=== PATIENT | female | born 1980 | race African-American/Black ===

== ENCOUNTER 2024-05-26 11:41 | Emergency (ER) | payer MEDICAID ==
[~2024-05-26] VITALS: Ht 165.1 cm; Wt 99.5 kg
[2024-05-26 11:54] VITALS: BP 126/70; RESP 16; TEMP 98; O2SAT 99
[2024-05-26 11:55] VITALS: PULSE 99; O2SAT 100
[2024-05-26 12:52] LABS: CLARITY URINE CLOUDY (CLEAR); COLOR URINE YELLOW (YELLOW); GLUCOSE URINE 3+ (NEGATIVE); KETONES URINE NEGATIVE (NEGATIVE); LEUKOCYTE ESTERASE URINE 2+ (NEGATIVE); NITRITE URINE POSITIVE (NEGATIVE); OCCULT BLOOD URINE NEGATIVE (NEGATIVE); PH URINE 5.5 (4.5-8.0); PROTEIN URINE NEGATIVE (NEGATIVE); SPECIFIC GRAVITY URINE 1.023 (1.005-1.030); UROBILINOGEN URINE 0.2 E.U./dL (0.2-1.0)
[2024-05-26] MEDS ORDERED: PYR200 MT (13:06)
[2024-05-26] MEDS ORDERED: CEPH500T MT (13:06)
[2024-05-26] MEDS ORDERED: CEPHALEXIN 250MG CAPSULE PO ONE (13:15)
[2024-05-26 13:37] LABS: SQUAMOUS EPITHELIAL CELL URINE FEW /lpf (RARE/1+)
[2024-05-26 13:38] LABS: BACTERIA URINE 3+; TRICHOMONAS URINE 2+
[2024-05-26 13:39] LABS: WBC URINE 50-100 /hpf (0-2)
[2024-05-26 13:40] LABS: RBC URINE NONE SEEN /hpf (0-2)
[2024-05-26] MEDS ORDERED: CEPHALEXIN 250MG CAPSULE PO SCH (16:00)
== END 2024-05-26 16:09 | disposition home or self-care (01) ==
LOC: ER 11:41
DX: N39.0 Urinary tract infection, site not specified (principal); E11.9 Type 2 diabetes mellitus without complications; Z90.49 Acquired absence of other specified parts of digestive tract
CPT/HCPCS: 81003; 87077; 87186; 99283

== ENCOUNTER 2024-07-05 07:44 | Emergency (ER) | payer MEDICAID ==
[~2024-07-05] VITALS: Ht 165.1 cm; Wt 99.7 kg
[~2024-07-05 07:44] MED LIST: CEPH500T MT; PYR200 MT
[2024-07-05 07:53] VITALS: TEMP 98.2; O2SAT 99
[2024-07-05] MEDS ORDERED: ALBU90AE INH (08:29)
[2024-07-05] MEDS ORDERED: PRED10TA23 MT (08:29)
[2024-07-05 08:36] VITALS: BP 124/76; PULSE 74; RESP 16; O2SAT 99
== END 2024-07-05 08:38 | disposition home or self-care (01) ==
LOC: ER 07:44
DX: J40 Bronchitis, not specified as acute or chronic (principal)
CPT/HCPCS: 71046; 99283

== ENCOUNTER 2024-08-19 12:43 | Emergency (ER) | payer MEDICAID ==
[~2024-08-19] VITALS: Ht 165.1 cm; Wt 98.0 kg
[~2024-08-19 12:43] MED LIST changes: +ALBU90AE INH; +PRED10TA23 MT
[2024-08-19 12:50] VITALS: BP 145/85; PULSE 96; RESP 16; TEMP 98.6; O2SAT 99
[2024-08-19 13:14] LABS: CLARITY URINE CLEAR (CLEAR); COLOR URINE YELLOW (YELLOW); GLUCOSE URINE 3+ (NEGATIVE); KETONES URINE NEGATIVE (NEGATIVE); LEUKOCYTE ESTERASE URINE 2+ (NEGATIVE); NITRITE URINE POSITIVE (NEGATIVE); OCCULT BLOOD URINE 3+ (NEGATIVE); PH URINE 6.5 (4.5-8.0); PROTEIN URINE TRACE (NEGATIVE); SPECIFIC GRAVITY URINE 1.021 (1.005-1.030)
[2024-08-19 13:24] LABS: BACTERIA URINE 4+; RBC URINE 25-50 /hpf (0-2); SQUAMOUS EPITHELIAL CELL URINE 1+ /lpf (RARE/1+); WBC URINE TNTC /hpf (0-2); YEAST URINE NONE SEEN
[2024-08-19] MEDS ORDERED: CEFP100S5 MT (16:32)
[2024-08-19 17:04] LABS: UCG SCREEN NEGATIVE
[2024-08-19 17:05] LABS: UCG KIT LOT# 873622
== END 2024-08-19 18:51 | disposition home or self-care (01) ==
LOC: ER 12:49
DX: N39.0 Urinary tract infection, site not specified (principal); E11.9 Type 2 diabetes mellitus without complications
CPT/HCPCS: 81003; 81025; 87077; 87186; 99283; A4565

== ENCOUNTER 2024-11-27 23:37 | Inpatient (IN) | payer BC, OTHER ==
[~2024-11-27] VITALS: Ht 165.1 cm; Wt 98.5 kg
[~2024-11-27 23:37] MED LIST changes: +CEFP100S5 MT
[2024-11-28] VITALS (7 sets, daily range): BP systolic 95–127; BP diastolic 55–63; PULSE 69–117; RESP 18–22; TEMP 36.3–37.9; O2SAT 95–100
[2024-11-28 00:45] LABS: CLARITY URINE CLOUDY (CLEAR); COLOR URINE YELLOW (YELLOW); GLUCOSE URINE 3+ (NEGATIVE); KETONES URINE 3+ (NEGATIVE); LEUKOCYTE ESTERASE URINE TRACE (NEGATIVE); NITRITE URINE NEGATIVE (NEGATIVE); OCCULT BLOOD URINE NEGATIVE (NEGATIVE); PROTEIN URINE 1+ (NEGATIVE); SPECIFIC GRAVITY URINE 1.023 (1.005-1.030); UROBILINOGEN URINE 0.2 E.U./dL (0.2-1.0)
[2024-11-28] MEDS ORDERED: AZITHROMYCIN 500MG/250ML 250 ML IV ONE (01:00)
[2024-11-28 01:02] LABS: RBC URINE 0-2 /hpf (0-2); SQUAMOUS EPITHELIAL CELL URINE FEW /lpf (RARE/1+)
[2024-11-28 01:03] LABS: BACTERIA URINE TRACE
[2024-11-28] MEDS: LACTATED RINGERS 1,000 ML IV ONE (01:13)
[2024-11-28] MEDS: CEFTRIAXONE 1GM/50ML 50 ML IV ONE (01:20)
[2024-11-28] MEDS: KETOROLAC 15MG/ML VIAL IV ONE (01:20)
[2024-11-28 01:38] LABS: HEMOGLOBIN. 9.5 g/dL (12.0-16.0); MEAN CORPUSCULAR HEMOGLOBIN 25.3 pg (28.0-32.0); MEAN CORPUSCULAR HGB CONC 32.8 g/dL (31.0-37.0); MEAN CORPUSCULAR VOLUME 77.2 fL (81.0-99.0); MEAN PLATELET VOLUME 8.9 fl (7.4-10.4); PLATELET 348 x1000/uL (130-400); RED BLOOD CELL COUNT 3.76 mill/uL (4.2-5.4); RED CELL DISTRIBUTION WIDTH 18.4 % (11.6-14.6); WHITE BLOOD COUNT 31.2 x1000/uL (4.5-11.0)
[2024-11-28 01:45] LABS: CHLORIDE 95 mEq/L (98-107); POTASSIUM 3.9 mEq/L (3.5-5.1); SODIUM 133 mEq/L (136-145)
[2024-11-28 01:46] LABS: CALCIUM 9.2 mg/dL (8.7-10.4); CARBON DIOXIDE 21 mEq/L (21-32)
[2024-11-28 01:50] LABS: DIFFERENTIAL COMMENT 1
[2024-11-28 01:51] LABS: CREATININE 1.3 mg/dL (0.6-1.0); UREA NITROGEN BLOOD 10 mg/dL (9-23)
[2024-11-28 01:53] LABS: ALANINE AMINOTRANSFERASE 10 IU/L (10-49); ASPARTATE AMINOTRANSFERASE 13 IU/L (<34); BILIRUBIN DIRECT 0.2 mg/dL (<=3.0); PROTEIN TOTAL 8.2 g/dL (6.0-8.3)
[2024-11-28] MEDS: AZITHROMYCIN 500MG/250ML 250 ML IV NR (01:56)
[2024-11-28 02:02] LABS: HCG SCREEN NEGATIVE
[2024-11-28 02:07] LABS: TROPONIN I HIGH SENSITIVITY < 4 ng/L (3.0-34)
[2024-11-28 02:08] LABS: INR 1.2; PROTHROMBIN TIME 12.4 sec (9.6-11.0)
[2024-11-28 02:10] LABS: GLUCOSE 410 mg/dL (70-105)
[2024-11-28] MEDS: INSULIN LISPRO 100 UNITS/ML SUBCUT ONE (02:11)
[2024-11-28 02:18] LABS: BILIRUBIN TOTAL 0.6 mg/dL (0.1-1.0)
[2024-11-28 02:21] LABS: ANISOCYTOSIS 1+; MICROCYTOSIS 1+; PLATELET ESTIMATE NORMAL
[2024-11-28] MEDS: IPRATROPIUM/ALBUTEROL 0.5-3(2.5)MG/3ML NEB HHN SCH (03:05)
[2024-11-28] MEDS ORDERED: CLONIDINE 0.1MG TABLET PO PRN (04:30)
[2024-11-28] MEDS ORDERED: POTASSIUM CHLORIDE 20MEQ TABLET SR PO PRN (04:30)
[2024-11-28] MEDS ORDERED: HYDROCODONE/ACETAMINOPHEN 5/325MG TABLET PO PRN (04:30)
[2024-11-28] MEDS ORDERED: IPRATROPIUM/ALBUTEROL 0.5-3(2.5)MG/3ML NEB HHN PRN ×2 (04:30)
[2024-11-28] MEDS ORDERED: DOCUSATE SODIUM 100MG CAPSULE PO PRN (04:30)
[2024-11-28] MEDS ORDERED: MAGNESIUM/ALUMINUM HYDROXIDE/SIMETHICONE 30ML UDC PO PRN (04:30)
[2024-11-28] MEDS ORDERED: DEXTROSE 50% WATER 50ML SYRINGE IV PRN ×2 (04:30)
[2024-11-28] MEDS ORDERED: ONDANSETRON HCL 4MG/2ML INJ IV PRN (04:30)
[2024-11-28] MEDS: VANCOMYCIN 1.5GM/250ML 250 ML IV NR (05:29)
[2024-11-28] MEDS ORDERED: BLOOD SUGAR DIAGNOSTIC STRIP TEST SCH (07:20)
[2024-11-28] MEDS: BLOOD SUGAR DIAGNOSTIC STRIP TEST SCH (07:44)
[2024-11-28] MEDS: PIPERACILLIN/TAZO 3.375G/50ML 100 ML IV SCH (07:46)
[2024-11-28] MEDS ORDERED: INSULIN LISPRO 100 UNITS/ML SUBCUT SCH ×2 (07:50)
[2024-11-28] MEDS: ENOXAPARIN 40MG/0.4ML SYR SUBCUT SCH (09:34)
[2024-11-28] MEDS: INSULIN LISPRO 100 UNITS/ML SUBCUT SCH (09:37)
[2024-11-28] MEDS ORDERED: NALOXONE HCL 0.4MG/ML VIAL IV PRN (12:45)
[2024-11-28] MEDS: PIPERACILLIN/TAZO 3.375G/50ML 50 ML IV SCH (14:28)
[2024-11-28] MEDS: SODIUM CHLORIDE 0.9% 1,000 ML IV SCH (14:34)
[2024-11-28 18:03] LABS: T4 FREE 1.01 ng/dL (0.89-1.76)
[2024-11-28 18:04] LABS: THYROID STIMULATING HORMONE 0.74 uIU/mL (0.55-4.78)
[2024-11-28] MEDS: ACETAMINOPHEN 325MG TABLET PO PRN (18:13)
[2024-11-28] MEDS ORDERED: IOHEXOL-300 100 ML BOTTLE ONE (22:23)
[2024-11-29] VITALS (9 sets, daily range): BP systolic 104–123; BP diastolic 63–81; PULSE 97–113; RESP 16–20; TEMP 36.2–36.7; O2SAT 95–99
[2024-11-29] MEDS: VANCOMYCIN 1.25GM/250ML IV SCH (03:10)
[2024-11-29 08:18] LABS: CHLORIDE 99 mEq/L (98-107); POTASSIUM 3.8 mEq/L (3.5-5.1); SODIUM 132 mEq/L (136-145)
[2024-11-29 08:19] LABS: CALCIUM 8.7 mg/dL (8.7-10.4); CARBON DIOXIDE 24 mEq/L (21-32)
[2024-11-29 08:22] LABS: UREA NITROGEN BLOOD 13 mg/dL (9-23)
[2024-11-29 08:24] LABS: CREATININE 0.8 mg/dL (0.6-1.0); GLUCOSE 392 mg/dL (70-105)
[2024-11-29 08:25] LABS: ALBUMIN 3.3 g/dL (3.2-4.8)
[2024-11-29 08:26] LABS: ALANINE AMINOTRANSFERASE 7 IU/L (10-49); ASPARTATE AMINOTRANSFERASE 12 IU/L (<34); BILIRUBIN DIRECT < 0.1 mg/dL (<=3.0); BILIRUBIN TOTAL 0.3 mg/dL (0.1-1.0); PROTEIN TOTAL 6.7 g/dL (6.0-8.3)
[2024-11-29 08:43] LABS: HEMOGLOBIN. 8.7 g/dL (12.0-16.0); MEAN CORPUSCULAR HEMOGLOBIN 24.7 pg (28.0-32.0); MEAN CORPUSCULAR HGB CONC 32.3 g/dL (31.0-37.0); MEAN CORPUSCULAR VOLUME 76.4 fL (81.0-99.0); PLATELET 283 x1000/uL (130-400); RED BLOOD CELL COUNT 3.54 mill/uL (4.2-5.4); RED CELL DISTRIBUTION WIDTH 18.9 % (11.6-14.6); WHITE BLOOD COUNT 19.5 x1000/uL (4.5-11.0)
[2024-11-29 09:04] LABS: DIFFERENTIAL COMMENT 1
[2024-11-29] MEDS: AZITHROMYCIN 500 MG TABLET PO SCH (09:09)
[2024-11-29 09:44] LABS: *AMPHETAMINES SCREEN URINE NEGATIVE (NEGATIVE); *BARBITURATES SCREEN URINE NEGATIVE (NEGATIVE); *BENZODIAZEPINES SCREEN URINE NEGATIVE (NEGATIVE); *COCAINE SCREEN URINE NEGATIVE (NEGATIVE); CANNABINOID URINE SCREEN NEGATIVE (NEGATIVE); ECSTASY MDMA SCREEN URINE NEGATIVE (NEGATIVE); METHADONE URINE SCREEN NEGATIVE (NEGATIVE); OPIATES URINE SCREEN NEGATIVE (NEGATIVE); PHENCYCLIDINE URINE SCREEN NEGATIVE (NEGATIVE)
[2024-11-29 09:50] LABS: TROPONIN I HIGH SENSITIVITY < 4 ng/L (3.0-34)
[2024-11-29 12:26] LABS: ANISOCYTOSIS 2+; MICROCYTOSIS 1+; PLATELET ESTIMATE NORMAL
[2024-11-29 17:32] LABS: INFLUENZA TYPE A Presumptive Negative (Pres. Neg.)
[2024-11-29 17:33] LABS: INFLUENZA TYPE B Presumptive Negative (Pres. Neg.)
[2024-11-29 17:34] LABS: RESPIRATORY SYNCYTIAL VIRUS Not Detected (Not Detectd)
[2024-11-29] MEDS: POTASSIUM-SODIUM PHOSPHATE POWDER PACKET PO NR (18:45)
[2024-11-29] MEDS: INSULIN LISPRO 100 UNITS/ML SUBCUT SCH (18:45)
[2024-11-29] MEDS: INSULIN GLARGINE 100 UNITS/ML SUBCUT SCH (22:53)
[2024-11-30] VITALS (9 sets, daily range): BP systolic 93–117; BP diastolic 66–78; PULSE 76–108; RESP 16–19; TEMP 36.3–36.7; O2SAT 96–100
[2024-11-30 08:41] LABS: BASOPHILS % 0.4 % (0.0-2.0); DIFFERENTIAL COMMENT 0; EOSINOPHILS % 0.6 % (0.0-5.0); HEMATOCRIT. 25.6 % (36.0-48.0); HEMOGLOBIN. 8.3 g/dL (12.0-16.0); LYMPHOCYTES % 8.2 % (20.0-50.0); MEAN CORPUSCULAR HEMOGLOBIN 24.4 pg (28.0-32.0); MEAN CORPUSCULAR HGB CONC 32.3 g/dL (31.0-37.0); MEAN CORPUSCULAR VOLUME 75.5 fL (81.0-99.0); MEAN PLATELET VOLUME 8.9 fl (7.4-10.4); MONOCYTES % 6.3 % (2.0-8.0); NEUTROPHILS % 84.5 % (40.0-76.0); PLATELET 294 x1000/uL (130-400); RED BLOOD CELL COUNT 3.39 mill/uL (4.2-5.4); RED CELL DISTRIBUTION WIDTH 18.4 % (11.6-14.6); WHITE BLOOD COUNT 14.9 x1000/uL (4.5-11.0)
[2024-11-30 08:47] LABS: CHLORIDE 100 mEq/L (98-107); POTASSIUM 3.6 mEq/L (3.5-5.1); SODIUM 136 mEq/L (136-145)
[2024-11-30 08:51] LABS: CALCIUM 8.8 mg/dL (8.7-10.4); CARBON DIOXIDE 27 mEq/L (21-32)
[2024-11-30 08:52] LABS: UREA NITROGEN BLOOD 9 mg/dL (9-23)
[2024-11-30 08:56] LABS: CREATININE 0.7 mg/dL (0.6-1.0); GLUCOSE 357 mg/dL (70-105)
[2024-11-30 08:58] LABS: ALANINE AMINOTRANSFERASE 11 IU/L (10-49); ALBUMIN 3.2 g/dL (3.2-4.8); ASPARTATE AMINOTRANSFERASE 14 IU/L (<34); BILIRUBIN DIRECT < 0.1 mg/dL (<=3.0)
[2024-11-30 08:59] LABS: BILIRUBIN TOTAL 0.2 mg/dL (0.1-1.0); PHOSPHORUS 2.8 mg/dL (2.5-4.9); PROTEIN TOTAL 6.3 g/dL (6.0-8.3)
[2024-11-30] MEDS: INSULIN GLARGINE 100 UNITS/ML SUBCUT SCH ×2 (10:52→21:43)
[2024-11-30] MEDS: INSULIN LISPRO 100 UNITS/ML SUBCUT SCH ×2 (13:43→18:11)
[2024-11-30] MEDS: VANCOMYCIN 1GM/200ML PMX (BAXTER) IV SCH (14:34)
[2024-12-01] VITALS (8 sets, daily range): BP systolic 105–132; BP diastolic 62–84; PULSE 75–106; RESP 15–18; TEMP 36.2–36.5; O2SAT 93–98
[2024-12-01 08:22] LABS: CARBON DIOXIDE 27 mEq/L (21-32); CHLORIDE 98 mEq/L (98-107); POTASSIUM 3.7 mEq/L (3.5-5.1); SODIUM 136 mEq/L (136-145)
[2024-12-01 08:23] LABS: CALCIUM 9.1 mg/dL (8.7-10.4)
[2024-12-01 08:28] LABS: GLUCOSE 263 mg/dL (70-105); UREA NITROGEN BLOOD 8 mg/dL (9-23)
[2024-12-01 08:44] LABS: BASOPHILS % 0.6 % (0.0-2.0); DIFFERENTIAL COMMENT 0; EOSINOPHILS % 1.2 % (0.0-5.0); HEMATOCRIT. 28.1 % (36.0-48.0); HEMOGLOBIN. 8.9 g/dL (12.0-16.0); LYMPHOCYTES % 12.7 % (20.0-50.0); MEAN CORPUSCULAR HEMOGLOBIN 24.1 pg (28.0-32.0); MEAN CORPUSCULAR HGB CONC 31.8 g/dL (31.0-37.0); MEAN CORPUSCULAR VOLUME 75.8 fL (81.0-99.0); MEAN PLATELET VOLUME 8.6 fl (7.4-10.4); MONOCYTES % 10.6 % (2.0-8.0); NEUTROPHILS % 74.9 % (40.0-76.0); PLATELET 339 x1000/uL (130-400); RED CELL DISTRIBUTION WIDTH 18.5 % (11.6-14.6)
[2024-12-01] MEDS: INSULIN GLARGINE 100 UNITS/ML SUBCUT SCH (12:13)
[2024-12-01] MEDS: INSULIN LISPRO (LOW DOSE) 100 UNITS/ML SUBCUT SCH (12:20)
[2024-12-01] MEDS ORDERED: INSULIN LISPRO 100 UNITS/ML SUBCUT SCH (12:20)
[2024-12-01] MEDS ORDERED: BENZONATATE 100MG CAPSULE PO PRN (12:45)
[2024-12-01] MEDS ORDERED: GUAIFENESIN-DM 200MG-20MG/10ML UDC PO PRN (12:45)
[2024-12-01] MEDS ORDERED: LANTUSUD SUBCUT ×2 (12:51)
[2024-12-01] MEDS ORDERED: BENZ100C86 MT (12:51)
[2024-12-01] MEDS ORDERED: INSLIS SUBCUT (12:51)
[2024-12-01] MEDS ORDERED: LEVO750T68 MT (12:51)
[2024-12-01] MEDS ORDERED: GUAI-740 MT (12:51)
[2024-12-01] MEDS ORDERED: NEED-472 SQ (16:06)
[2024-12-01] MEDS ORDERED: INSULIN GLARGINE 100 UNITS/ML SUBCUT SCH (22:00)
== END 2024-12-01 16:15 | disposition home or self-care (01) | DRG 871 ==
LOC: ER 23:37 → 6WST 11-28 02:27 → EDBEDREQTM 11-28 02:35 → EDBEDREQ 11-28 02:35 → EDBEDREQSVC 11-28 02:35
PROVIDERS: ADMIT Specialist; ATTEND Specialist
DX: A41.9 Sepsis, unspecified organism (principal); J18.9 Pneumonia, unspecified organism; N17.9 Acute kidney failure, unspecified; N39.0 Urinary tract infection, site not specified; E11.40 Type 2 diabetes mellitus with diabetic neuropathy, unspecified; D57.3 Sickle-cell trait; E11.649 Type 2 diabetes mellitus with hypoglycemia without coma; Z20.822 Contact with and (suspected) exposure to COVID-19; R16.0 Hepatomegaly, not elsewhere classified; D50.9 Iron deficiency anemia, unspecified; E66.01 Morbid (severe) obesity due to excess calories; Z79.4 Long term (current) use of insulin; Z80.3 Family history of malignant neoplasm of breast; Z83.3 Family history of diabetes mellitus; Z90.49 Acquired absence of other specified parts of digestive tract; Z68.35 Body mass index [BMI] 35.0-35.9, adult
CPT/HCPCS: 36415; 71045; 73502; 74177; 80048; 80061; 80076; 80202; 80305; 81003; 82533; 82962; 83036; 83519; 83605; 83735; 84100; 84145; 84439; 84443; 84484; 84681; 84703; 85025; 85044; 86850; 86900; 87420; 87426; 87804; 93005; 93970; 94070; 94640; 99291; A4606; C1893; J0456; J0696; J1650; J1815; J1885; J2405; J2543; J3370; J7030; J7120; Q9967

== ENCOUNTER 2025-05-28 16:57 | Emergency (ER) | payer BC ==
[~2025-05-28] VITALS: Ht 167.6 cm; Wt 82.0 kg
[~2025-05-28 16:57] MED LIST changes: -ALBU90AE INH; +BENZ100C86 MT; -CEFP100S5 MT; -CEPH500T MT; +GUAI-740 MT; +INSLIS SUBCUT; +LANTUSUD SUBCUT; +LEVO750T68 MT; +NEED-472 SQ; -PRED10TA23 MT; -PYR200 MT
[2025-05-28 17:04] VITALS: TEMP 36.7; O2SAT 99
[2025-05-28 18:28] LABS: BASOPHILS % 0.6 % (0.0-2.0); EOSINOPHILS % 1.4 % (0.0-5.0); HEMATOCRIT. 25.3 % (36.0-48.0); HEMOGLOBIN. 8.2 g/dL (12.0-16.0); LYMPHOCYTES % 22.5 % (20.0-50.0); MEAN PLATELET VOLUME 8.4 fl (7.4-10.4); MONOCYTES % 9.8 % (2.0-8.0); NEUTROPHILS % 65.7 % (40.0-76.0); PLATELET 343 x1000/uL (130-400); RED BLOOD CELL COUNT 3.39 mill/uL (4.2-5.4); RED CELL DISTRIBUTION WIDTH 18.9 % (11.6-14.6)
[2025-05-28 18:44] LABS: CREATININE 0.8 mg/dL (0.6-1.0); UREA NITROGEN BLOOD 10 mg/dL (9-23)
[2025-05-28 18:58] LABS: BG DEOXYHEMOGLOBIN 34.0 % (0.0-5.0)
[2025-05-28 19:46] VITALS: BP 138/79; PULSE 88; RESP 16; O2SAT 98
== END 2025-05-28 19:50 | disposition home or self-care (01) ==
LOC: ER 16:57
DX: R25.2 Cramp and spasm (principal); R20.0 Anesthesia of skin; R20.2 Paresthesia of skin; E11.9 Type 2 diabetes mellitus without complications
CPT/HCPCS: 36415; 80048; 82010; 82375; 82803; 85025; 99283

== ENCOUNTER 2025-06-03 07:28 | Emergency (ER) | payer BC ==
[~2025-06-03] VITALS: Ht 166.4 cm; Wt 103.5 kg
[2025-06-03 07:33] VITALS: O2SAT 99
[2025-06-03] MEDS: ACETAMINOPHEN 500MG TABLET PO ONE (08:38)
[2025-06-03] MEDS ORDERED: ACET-2708 MT (08:50)
[2025-06-03 08:52] VITALS: BP 140/88; PULSE 92; RESP 16; TEMP 37.4; O2SAT 99
[2025-06-03 10:23] LABS: INFLUENZA TYPE A Presumptive Negative (Pres. Neg.); INFLUENZA TYPE B Presumptive Negative (Pres. Neg.)
== END 2025-06-03 08:53 | disposition home or self-care (01) ==
LOC: ER 07:28
DX: U07.1 COVID-19 (principal); R05.9 Cough, unspecified; R09.81 Nasal congestion; E11.9 Type 2 diabetes mellitus without complications; Z90.49 Acquired absence of other specified parts of digestive tract
CPT/HCPCS: 87426; 87804; 99283

== ENCOUNTER 2025-07-01 15:09 | Emergency (ER) | payer BC, MEDICAID ==
[~2025-07-01] VITALS: Ht 165.1 cm; Wt 104.5 kg
[~2025-07-01 15:09] MED LIST changes: +ACET-2708 MT
[2025-07-01 15:20] VITALS: BP 146/85; TEMP 36.9; O2SAT 100
[2025-07-01 15:22] VITALS: PULSE 88; RESP 16; O2SAT 99
[2025-07-01 15:58] LABS: CLARITY URINE CLOUDY (CLEAR); GLUCOSE URINE 3+ (NEGATIVE); KETONES URINE NEGATIVE (NEGATIVE); LEUKOCYTE ESTERASE URINE 2+ (NEGATIVE); NITRITE URINE NEGATIVE (NEGATIVE); OCCULT BLOOD URINE NEGATIVE (NEGATIVE); PH URINE 6.0 (4.5-8.0); PROTEIN URINE NEGATIVE (NEGATIVE); SPECIFIC GRAVITY URINE 1.022 (1.005-1.030); UROBILINOGEN URINE 0.2 E.U./dL (0.2-1.0)
[2025-07-01 16:12] LABS: COLOR URINE STRAW (YELLOW)
[2025-07-01 16:13] LABS: BACTERIA URINE 3+; RBC URINE NONE SEEN /hpf (0-2); SQUAMOUS EPITHELIAL CELL URINE 2+ /lpf (RARE/1+); WBC URINE 25-50 /hpf (0-2)
[2025-07-01] MEDS ORDERED: CEFP200T13 MT (16:29)
== END 2025-07-01 17:04 | disposition home or self-care (01) ==
LOC: ER 15:09
DX: N39.0 Urinary tract infection, site not specified (principal); E11.9 Type 2 diabetes mellitus without complications; Z90.49 Acquired absence of other specified parts of digestive tract
CPT/HCPCS: 81003; 81025; 99283